=== PATIENT | male | born 1970 | race Caucasian/White ===

== ENCOUNTER 2018-06-29 13:11 | Emergency (ER) | payer SELFPAY ==
[2018-06-29] MEDS ORDERED: Bupivacaine 0.5% 10 ML VIAL ONE (13:23)
[2018-06-29] MEDS ORDERED: Ondansetron PF 4 MG/2 ML Vial ONE (13:42)
[2018-06-29] MEDS ORDERED: Adenosine 6 MG/2 ML VIAL ONE (13:42)
[2018-06-29] MEDS ORDERED: CEFAZOLIN 1 GM VIAL ONE (13:42)
[2018-06-29] MEDS ORDERED: Morphine 4 MG/ML VIAL ONE (13:42)
[2018-06-29] MEDS ORDERED: Adacel (T-DAP) 0.5 ML SYRINGE ONE (13:42)
[2018-06-29] MEDS ORDERED: Sodium Chloride 0.9% 100 ML ONE (13:44)
--- NOTE | 2018-06-29 14:37 | RAD ---
THREE VIEWS LEFT MIDDLE FINGER: Date: 06-29-18 History: Laceration to distal portion left finger. Patient cut middle finger on glass. FINDINGS: There is soft tissue irregularity and lucency involving the distal aspect of the left middle finger c onsistent with laceration in patient's recent injury. There is no underlying fracture. No dislocation or other osseous abnormality is seen. No radiopaque foreign body is appreciated. IMPRESSION: 1. Laceration distal left middle finger. No underlying osseous abnormality is seen. No radiopaque for eign body is identified. POS: [facility]
--- NOTE | 2018-06-29 14:39 | RAD ---
LEFT ELBOW TWO VIEWS: History: Laceration to left elbow. FINDINGS: There appears to be some soft tissue air near the radius. There are no signs of fracture or joint eff usion. IMPRESSION: No evidence of fracture or joint effusion. POS: [facility]
== END 2018-06-29 17:14 | disposition home or self-care (01) ==
LOC: ERS 13:11
DX: S61.313A Laceration without foreign body of left middle finger with damage to nail, initial encounter (principal); S51.012A Laceration without foreign body of left elbow, initial encounter; I10 Essential (primary) hypertension; F17.210 Nicotine dependence, cigarettes, uncomplicated; Z23 Encounter for immunization; W25.XXXA Contact with sharp glass, initial encounter
CPT/HCPCS: 12001; 90471; 90715; 96365; 96372; 96375; J0153; J0690; J2270; J2405; J3490; J7050